=== PATIENT | female | born 2000 | race African-American/Black ===

== ENCOUNTER 2020-03-10 11:59 | Emergency (ER) | payer OTHER ==
[~2020-03-10] VITALS: Ht 160 cm; Wt 52.8 kg
[2020-03-10 12:50] LABS: BASO % 0.3 % (0.0-1.0); EOS % 0.1 % (0.0-3.0); HEMATOCRIT 32.5 % (36.0-47.0); HEMOGLOBIN 9.7 g/dl (12.0-15.5); LYMPH # 1.3 10^3/uL (1.5-5.0); LYMPH % 14.4 % (24.0-44.0); MEAN CORPUSCULAR HEMOGLOBIN 19.1 pg (27.0-33.0); MEAN CORPUSCULAR HGB CONC 29.8 g/dl (32.0-36.5); MEAN CORPUSCULAR VOLUME 63.9 fl (80.0-96.0); MONO # 0.8 10^3/uL (0.0-0.8); MONO % 8.4 % (0.0-5.0); NEUTROPHILS # 7.1 10^3/uL (1.5-8.5); NEUTROPHILS % 76.5 % (36.0-66.0); PLATELET COUNT, AUTOMATED 271 10^3/uL (150-450); RED BLOOD COUNT 5.09 10^6/uL (4.00-5.40); WHITE BLOOD COUNT 9.3 10^3/uL (4.0-10.0)
[2020-03-10 14:15] LABS: BLOOD UREA NITROGEN 8 MG/DL (7-18); CALCIUM LEVEL 9.6 MG/DL (8.5-10.1); CARBON DIOXIDE LEVEL 23 MEQ/L (21-32); CHLORIDE LEVEL 102 MEQ/L (98-107); GLUCOSE, FASTING 91 MG/DL (70-100); HCG, SERUM QUANTITATIVE 71559 MIU/ML; POTASSIUM SERUM 3.6 MEQ/L (3.5-5.1); SODIUM LEVEL 132 MEQ/L (136-145)
--- NOTE | 2020-03-10 14:18 | REPVR ---
PROCEDURE INFORMATION: Exam: US Retroperitoneal Limited, Kidneys Exam date and time: 03/10/2020 1:33 PM Age: 20 years old Clinical indication: Abdominal pain; Acute; ; Additional info: L flank pain 7wks preg R/O pylo TECHNIQUE: Imaging protocol: Real-time ultrasound of the retroperitoneum with image documentation. Examination was focused on the kidneys. COMPARISON: No relevant prior studies available. FINDINGS: Right kidney: The right kidney measures 9.5 x 3.8 by 3.9 cm. No hydronephrosis Left kidney: The left kidney measures 9.3 x 5.4 by 3.7 cm. No hydronephrosis Bladder: Color Doppler examination of the bladder trigone was performed. Bilateral ureteral jets were absent Uterus: Incidental note made of a intrauterine . Gestation: The pole demonstrates a heart rate of 152 bpm IMPRESSION: 1. Normal renal ultrasound. 2. Single live intrauterine . Electronically signed by: Brenda Cardenas On 03/10/2020 14:18:09 PM
[2020-03-10] MEDS ORDERED: KEFL500C17 PO (14:29)
[2020-03-10 14:46] VITALS: BP 116/71
== END 2020-03-10 14:48 | disposition home or self-care (01) ==
LOC: M ED 11:59
DX: O23.41 Unspecified infection of urinary tract in pregnancy, first trimester (principal); O99.011 Anemia complicating pregnancy, first trimester; D64.9 Anemia, unspecified; Z3A.01 Less than 8 weeks gestation of pregnancy

== ENCOUNTER 2021-11-18 20:13 | Emergency (ER) | payer OTHER ==
[~2021-11-18] VITALS: Ht 160 cm; Wt 48.2 kg
[~2021-11-18 20:13] MED LIST: KEFL500C17 PO
[2021-11-19 01:37] VITALS: BP 144/91
[2021-11-19 05:43] LABS: URINE PREG TEST NEGATIVE (NEGATIVE)
[2021-11-19] MEDS ORDERED: BACTRIM 160MG/800MG DS TAB PO ONE (06:30)
[2021-11-19] MEDS ORDERED: SULF1TAB23 PO (06:30)
[2021-11-19 07:22] LABS: GC DNA AMPLIFICATION NEGATIVE (NEGATIVE)
== END 2021-11-19 07:00 | disposition home or self-care (01) ==
LOC: M ED 20:13
DX: N39.0 Urinary tract infection, site not specified (principal); N75.0 Cyst of Bartholin's gland; F17.210 Nicotine dependence, cigarettes, uncomplicated

== ENCOUNTER 2022-06-29 11:36 | Emergency (ER) | payer OTHER ==
[~2022-06-29] VITALS: Ht 160 cm; Wt 50.2 kg
[~2022-06-29 11:36] MED LIST changes: +SULF1TAB23 PO
[2022-06-29 12:52] LABS: HEMATOCRIT 35.8 % (36.0-47.0); HEMOGLOBIN 10.5 g/dl (12.0-15.5); MEAN CORPUSCULAR HGB CONC 29.3 g/dl (32.0-36.5); MEAN CORPUSCULAR VOLUME 64.7 fl (80.0-96.0); PLATELET COUNT, AUTOMATED 333 10^3/uL (150-450); RED BLOOD COUNT 5.53 10^6/uL (4.00-5.40); WHITE BLOOD COUNT 10.7 10^3/uL (4.0-10.0)
[2022-06-29 13:18] LABS: BLOOD UREA NITROGEN 12 MG/DL (9-23); CALCIUM LEVEL 9.3 MG/DL (8.5-10.1); CARBON DIOXIDE LEVEL 22 MMOL/L (20-31); CHLORIDE LEVEL 99 MMOL/L (98-107); CREATININE FOR GFR 1.02 MG/DL (0.55-1.30); GLUCOSE, FASTING 83 MG/DL (60-100); HCG, SERUM QUALITATIVE NEGATIVE (NEGATIVE); POTASSIUM SERUM 4.3 MMOL/L (3.5-5.1); SODIUM LEVEL 132 MMOL/L (136-145)
[2022-06-29 13:21] LABS: THYROID STIMULATING HORMONE 0.986 uIU/ML (0.55-4.78)
[2022-06-29] MEDS ORDERED: NS 1,000 ML IV ONE (14:10)
[2022-06-29 14:48] LABS: CK-MB VALUE MASS < 1.0 NG/ML (<3.6)
[2022-06-29 14:49] LABS: CPK CREATINE PHOSPHOKINASE 94 U/L (34-145); MB/CK RELATIVE INDEX 1.06 (< OR =4)
[2022-06-29 14:52] LABS: FREE T4 1.55 NG/DL (0.89-1.76)
[2022-06-29 15:51] LABS: CK-MB VALUE MASS < 1.0 NG/ML (<3.6)
[2022-06-29 15:52] LABS: CPK CREATINE PHOSPHOKINASE 87 U/L (34-145); MB/CK RELATIVE INDEX 1.14 (< OR =4)
[2022-06-29 16:01] LABS: AMPHETAMINES LEVEL URINE NEGATIVE (NEGATIVE); BARBITURATES URINE NEGATIVE (NEGATIVE); BENZODIAZEPINES URINE NEGATIVE (NEGATIVE); CANNABINOIDS URINE NEGATIVE (NEGATIVE); COCAINE METABOLITE URINE NEGATIVE (NEGATIVE); METHADONE URINE NEGATIVE (NEGATIVE); OPIATES URINE NEGATIVE (NEGATIVE); PHENCYCLIDINE URINE NEGATIVE (NEGATIVE)
[2022-06-29 16:18] LABS: IRON (FE) 11 UG/DL (50-170); PERCENT SATURATION 2.3 % (13.2-45.0); TOTAL IRON BINDING CAPACITY 476 UG/DL (250-425)
[2022-06-29 16:20] LABS: FOLATE > 24.0 NG/ML (>5.4)
[2022-06-29 16:21] LABS: FERRITIN 7.2 NG/ML (7.3-270.7); VITAMIN B12 LEVEL 1046 PG/ML (211-911)
[2022-06-29 17:42] LABS: CK-MB VALUE MASS < 1.0 NG/ML (<3.6)
[2022-06-29 17:43] LABS: MAGNESIUM LEVEL 1.7 MG/DL (1.8-2.4)
[2022-06-29 17:44] LABS: CPK CREATINE PHOSPHOKINASE 67 U/L (34-145); MB/CK RELATIVE INDEX 1.49 (< OR =4)
[2022-06-29 19:46] VITALS: BP 126/68
== END 2022-06-29 20:10 | disposition home or self-care (01) ==
LOC: M ED 11:36
DX: D50.9 Iron deficiency anemia, unspecified (principal); R00.2 Palpitations; J45.909 Unspecified asthma, uncomplicated; F17.200 Nicotine dependence, unspecified, uncomplicated; F17.290 Nicotine dependence, other tobacco product, uncomplicated